=== PATIENT | male | born 1945 | race Caucasian/White ===

== ENCOUNTER 2017-06-21 15:21 | Emergency (ER) | payer MEDICARE ==
[2017-06-21 16:00] LABS: #Lymphocytes 0.8 thou/uL (1.20-3.40); #Monocytes 0.3 thou/uL (0.11-0.59); #Neutrophils 6.5 thou/uL (1.40-6.50); %Basophils 0.6 % (0.0-1.0); %Eosinophils 0.4 % (0.0-10.0); %Monocytes 3.8 % (0.0-10.0); Hematocrit 51.1 % (42.0-52.0); Mean Platelet Volume 7.3 fL (7.4-10.4); Red Blood Cell (RBC) Count 5.21 mill/uL (4.70-6.10); White Blood Cell (WBC) Count 7.7 thou/uL (4.8-10.8)
[2017-06-21 16:24] LABS: ALT (SGPT) 27 U/L (8-55); AST (SGOT) 23 U/L (5-34); Alkaline Phosphatase 57 U/L (40-150); Anion Gap 14 mmol/L (10-20); BUN (Urea Nitrogen) 18 mg/dL (8.4-25.7); Bilirubin, Total 0.8 mg/dL (0.2-1.2); CK (CPK) 105 U/L (30-200); Calc. Creatinine Clearance 0 mL/min (70-130); Calcium 9.7 mg/dL (7.8-10.44); Carbon Dioxide 28 mmol/L (23-31); Chloride 101 mmol/L (98-107); Estimated GFR-MDRD 72; Lipase 15 U/L (8-78); Protein, Total 7.4 g/dL (5.8-8.1)
[2017-06-21 16:27] LABS: Troponin I Less than 0.010 ng/mL (< 0.028)
--- NOTE | 2017-06-21 16:37 | RAD ---
PORTABLE AP CHEST: Date: 06-21-17 History: Chest pain, dizziness. 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 Cardiac silhouette and pulmonary vasculature are wi thin normal limits. The lungs are clear. Pleural and parenchymal changes of the left lung base have resolved and previously noted left subclavian central venous catheter is no longer visualized. 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 This is a stable finding compared to the prior examination in 2007. Vascular calcification seen in the thoraci c aorta. IMPRESSION: No acute cardiopulmonary process. POS: [facility]
--- NOTE | 2017-06-21 17:11 | CT ---
CT HEAD WITHOUT IV CONTRASTS: Date: 06-21-17 History: Dizziness, vomiting. Comparison: None available. FINDINGS: There is no evidence of a hemorrhage, acute infarction, mass effect, or midline shift. Ventricular s ystem is normal in size, shape, and position. There is mild cerebral and cerebellar volume loss, not unexpected for the patient's age. There is mucosal thickening seen in the visualized left maxillary antrum. Calvarial structures are i ntact. IMPRESSION: 1. No acute intracranial abnormality is demonstrated. 2. Mild cerebral and cerebellar volume loss. 3. Sinus disease involving the left maxillary antrum. POS: [facility]
== END 2017-06-21 17:51 | disposition home or self-care (01) ==
LOC: ERS 15:21
DX: R42 Dizziness and giddiness (principal); I10 Essential (primary) hypertension; Z79.899 Other long term (current) drug therapy
CPT/HCPCS: 36415; 70450; 71010; 80053; 82553; 83690; 84484; 85025; 93005

== ENCOUNTER 2018-04-18 11:05 | Outpatient (CLI) | payer MEDICARE | END 2018-04-18 11:06 | disposition home or self-care (01) | LOC: BICRAD 11:05 | PROVIDERS: ATTEND Family Medicine | DX: M54.16 Radiculopathy, lumbar region (principal); M54.5 Low back pain; M43.16 Spondylolisthesis, lumbar region | CPT/HCPCS: 72110 ==

== ENCOUNTER 2018-08-15 13:35 | Outpatient (CLI) | payer MEDICARE ==
[2018-08-15 14:27] LABS: Hemoglobin 14.8 g/dL (14.0-18.0); Mean Corpuscular HGB CONC 33.7 g/dL (32.0-36.0); Mean Corpuscular Hemoglobin 32.9 pg (27.0-31.0); Mean Corpuscular Volume 97.4 fL (78.0-98.0); Mean Platelet Volume 7.8 fL (7.4-10.4); Platelet Count 211 thou/uL (130-400); RBC Distribution Width 12.5 % (11.5-14.5); White Blood Cell (WBC) Count 5.6 thou/uL (4.8-10.8)
[2018-08-15 14:34] LABS: INR-International Normal Ratio 0.9; PTT 27.1 SEC (22.9-36.1); Prothrombin Time 12.5 SEC (12.0-14.7)
[2018-08-15 14:42] LABS: Anion Gap 12 mmol/L (10-20); BUN (Urea Nitrogen) 22 mg/dL (8.4-25.7); Calc. Creatinine Clearance 0 mL/min (70-130); Calcium 9.4 mg/dL (7.8-10.44); Carbon Dioxide 27 mmol/L (23-31); Chloride 104 mmol/L (98-107); Estimated GFR-MDRD 65; Glucose 130 mg/dL (83-110); Potassium 4.2 mmol/L (3.5-5.1); Sodium 139 mmol/L (136-145)
--- NOTE | 2018-08-15 17:21 | EKG ---
Test Reason : Blood Pressure : / mmHG Vent. Rate : 075 BPM Atrial Rate : 075 BPM P-R Int : 180 ms QRS Dur : 090 ms QT Int : 374 ms P-R-T Axes : 058 082 070 degrees QTc Int : 417 ms Normal sinus rhythm with sinus arrhythmia Normal ECG When compared with ECG of 21-JUN-2017 15:27, T wave inversion no longer evident in Anterior leads Confirmed by KAYA BONNER, SMatt ([id number]) on 08/15/2018 5:21:17 PM Referred By: ADWOA Confirmed By:DR. Mariposa KIRKPATRICK MD
== END 2018-08-15 13:36 | disposition home or self-care (01) ==
LOC: LABBT 13:35
PROVIDERS: ATTEND Surgery
DX: M48.061 Spinal stenosis, lumbar region without neurogenic claudication (principal); M54.16 Radiculopathy, lumbar region
CPT/HCPCS: 80048; 85027; 85610; 85730; 93005; 93010

== ENCOUNTER 2018-08-22 09:28 | Day surgery (SDC) | payer MEDICARE ==
[2018-08-15 13:36] VITALS: BMI 25.8
[2018-08-22] MEDS ORDERED: CEFAZOLIN 2 GM/50 ML BAG ONE (11:18)
[2018-08-22] MEDS ORDERED: Thrombin 5000 UNITS/5 ML VIAL ONE ×2 (13:12→14:52)
[2018-08-22] MEDS ORDERED: Sodium Chloride 0.9% 10 ML ONE ×2 (13:12→14:52)
[2018-08-22] MEDS ORDERED: Bacitracin Zinc Ointment 30 gm TUBE ONE (14:52)
[2018-08-22] MEDS ORDERED: Ketorolac Tromethamine 30 MG/ML VIAL ONE (15:53)
[2018-08-22] MEDS ORDERED: Esmolol 100 MG/10 ML VIAL ONE (15:53)
[2018-08-22] MEDS ORDERED: Ondansetron PF 4 MG/2 ML Vial ONE ×2 (15:53→17:34)
[2018-08-22] MEDS ORDERED: Lidocaine 1% PF 5 ML VIAL ONE (15:53)
[2018-08-22] MEDS ORDERED: Glycopyrrolate 0.2 MG/ML 5 ML SYRINGE ONE (15:53)
[2018-08-22] MEDS ORDERED: Metoclopramide HCl 10 MG/2 ML VIAL ONE (15:53)
[2018-08-22] MEDS ORDERED: PHENYLEPHRINE-NS 100 MCG/ML 10 ML SYRINGE ONE (15:53)
[2018-08-22] MEDS ORDERED: PROPOFOL 200 MG/20 ML VIAL ONE (15:53)
[2018-08-22] MEDS ORDERED: Fentanyl 100 MCG/2 ML VIAL ONE ×2 (16:51→19:30)
[2018-08-22] MEDS ORDERED: Promethazine HCl 25 MG/ML VIAL SLOW IVP PRN (18:28)
[2018-08-22] MEDS ORDERED: PACU-Morphine 4MG/ML VIAL SLOW IVP PRN (18:28)
[2018-08-22] MEDS ORDERED: Ondansetron HCl/PF 4 MG/2 ML Vial IVP PRN (18:28)
[2018-08-22] MEDS ORDERED: Promethazine HCl 25 MG/ML VIAL IM PRN ×2 (18:28→19:05)
[2018-08-22] MEDS ORDERED: Meperidine HCl/PF 25 MG/ML VIAL SLOW IVP PRN (18:28)
[2018-08-22] MEDS ORDERED: HYDROmorphone 2 MG/ML VIAL SLOW IVP PRN (18:28)
[2018-08-22] MEDS ORDERED: Morphine Sulfate 2 MG/ML SYRINGE SLOW IVP PRN (18:28)
[2018-08-22] MEDS ORDERED: Mag-Al 1200 mg/1200 mg/30 ML UDCUP PO PRN (19:05)
[2018-08-22] MEDS ORDERED: tiZANidine HCl 4 MG TAB PO PRN (19:05)
[2018-08-22] MEDS ORDERED: traMADol HCl 50 MG TAB PO PRN (19:05)
[2018-08-22] MEDS ORDERED: Acetaminophen/Codeine 30-300mg Tablet PO PRN (19:05)
[2018-08-22] MEDS ORDERED: Fleet Enema 133 ML BOT PR PRN (19:05)
[2018-08-22] MEDS ORDERED: Morphine 2 MG/ML SYRINGE SLOW IVP PRN (19:05)
[2018-08-22] MEDS ORDERED: Milk Of Magnesia 30 ML UDCUP PO PRN (19:05)
[2018-08-22] MEDS ORDERED: Acetaminophen 325 MG TAB PO PRN (19:05)
[2018-08-22] MEDS ORDERED: Bisacodyl 10 MG SUPP PR PRN (19:05)
[2018-08-22] MEDS ORDERED: CANAGLIFLOZIN PO SCH (21:00)
[2018-08-22] MEDS: Sodium Chloride 0.9% 1,000 ML IV SCH (22:37)
[2018-08-23] MEDS: Sodium Chloride 0.9% 1,000 ML IV SCH (00:09)
[2018-08-23] MEDS: CEFAZOLIN 2 GM/50 ML BAG IVPB SCH ×2 (00:09→08:16)
[2018-08-23] MEDS: HYDROcodone/Acetaminophen 7.5/325 mg Tablet PO PRN ×2 (00:13→08:14)
[2018-08-23 08:08] VITALS: TEMP 98.3
[2018-08-23] MEDS ORDERED: Prevnar 13-Val Conj/PF 0.5 ML SYRINGE IM ONE (09:00)
[2018-08-23] MEDS ORDERED: Lactinex Tablet PO SCH (09:00)
[2018-08-23] MEDS ORDERED: Multivits W-Minerals Liquid 15mL UDCUP PO SCH (09:00)
[2018-08-23] MEDS ORDERED: Ascorbic Acid 500 mg Chewable Tablet PO SCH (09:00)
[2018-08-23] MEDS ORDERED: Metamucil PACK PO SCH (09:00)
[2018-08-23] MEDS ORDERED: Lisinopril 10 MG TAB PO SCH (09:00)
[2018-08-23] MEDS ORDERED: GLUCOSAMINE PO SCH (09:00)
[2018-08-23] MEDS ORDERED: Folic Acid 1 MG TAB PO SCH (09:00)
[2018-08-23] MEDS ORDERED: CHROMIUM AMINO ACID CHELATE PO SCH (09:00)
--- NOTE | 2018-08-23 09:58 | PRG ---
DATE OF SERVICE: Mr. Porter is postoperative day 1 from L3 through L5 laminectomy. He has had resolution in his leg pain with good strength. He is tolerating orals, but he is not yet mobilized to the bathroom. He has voided on his own. As long as he is mobilizing, we will dismiss him. Job ID: [id number]
[2018-08-23 12:17] VITALS: BP 147/69
--- NOTE | 2018-08-23 15:17 | OP ---
DATE OF PROCEDURE: 08/22/2018 OPERATING ROOM: OR 11. SUPERVISOR TUMBLERS: Benny Youngblood PA-C PREPROCEDURE DIAGNOSIS: Lumbar stenosis with low back and leg pain. POSTPROCEDURE DIAGNOSIS: Lumbar stenosis with low back and leg pain. PROCEDURES PERFORMED: L3-L4 and L4-L5 laminectomies, partial facetectomies, and foraminotomies. DESCRIPTION OF PROCEDURE: After informed consent was obtained from the patient, the patient was brought to OR 11. Proper patient pause and identification were carried out. He was placed under excellent general endotracheal anesthesia and positioned prone on the OR table. All appropriate points were padded. We identified the L3, L4, and L5 dorsal spines. A linear kenisha was made over this region. This area was sterilely cleansed, prepared, and draped. Proper patient pause and identification were carried out. The wound was then opened with a combination of sharp, monopolar, and blunt dissection. The L3, L4, and L5 dorsal spines and lamina were exposed. Localization confirmed our area of interest. We then performed an L3, L4, and L5 laminectomies, partial fasciectomies, and foraminotomies with excellent decompression of the common dural tube in the L3, L4, and L5 nerve roots. Copious irrigation occurred throughout as did maximizing hemostasis. The wound was then closed in anatomic layers following sprinkling of vancomycin powder. There was no spinal fluid leak. The patient then emerged from anesthesia. Job ID: [id number]
== END 2018-08-23 12:18 | disposition home or self-care (01) ==
LOC: SDC 09:28 → SURG A 19:40 → SDC 08-23 12:18
PROVIDERS: ATTEND Surgery
PROC: 01NB0ZZ Release Lumbar Nerve, Open Approach (ICD-10-PCS; principal; 2018-08-22)
DX: M48.061 Spinal stenosis, lumbar region without neurogenic claudication (principal); Z79.899 Other long term (current) drug therapy
CPT/HCPCS: 76001; J0131; J1885; J2001; J2405; J2704; J2765; J3010; J3370; J3490

== ENCOUNTER 2019-12-25 09:01 | Outpatient (CLI) | payer MEDICARE ==
--- NOTE | 2019-12-25 10:25 | MRI ---
MRI OF THE LUMBAR SPINE WITHOUT CONTRAST: Date: 12/25/2019 COMPARISON: None. HISTORY: Left hip pain that radiates down the left foot after getting out of a car 1 month ago. COMPARISON: 05/08/2018. Prior lumbar surgery in 2012. TECHNIQUE: Multiplanar, multisequence MR images were obtained in the lumbar spine without contrast. FINDINGS: Generalized disc desiccation seen. The vertebral bodies and intervertebral discs demonstrate normal h eight and alignment without fracture or subluxation. The conus medullaris terminates normally at T12. There is a well-circumscribed focus of high T2 signal in the left kidney which likely represents a cy st. The patient has had laminectomies at L4 and L5. The other paraspinal soft tissues are unremarkabl e. T12-L1: Unremarkable. L1-2: Unremarkable. L2-3: A small, generalized concentric disc bulge is seen. Mild bilateral posterior facet arthrosis. Mild central canal stenosis. Mild to moderate bilateral neural foraminal stenosis. L3-4: A small, generalized concentric disc bulge is seen. Mild bilateral posterior facet arthrosis. No central canal stenosis. Mild to moderate bilateral neural foraminal stenosis. L4-5: A small, generalized concentric disc bulge is seen. There is a superimposed left lateral protr usion. Moderate bilateral posterior facet arthrosis. No central canal stenosis. Severe left neural fo raminal stenosis. Mild right neural foraminal stenosis. L5-S1: A small, generalized concentric disc bulge is associated with a superimposed central protrusi on. Mild bilateral posterior facet arthrosis. No central canal stenosis. Moderate bilateral neural fo raminal stenosis. IMPRESSION: Degenerative changes of the lumbar spine as above. There is a new superimposed protrusion at L4-5 cau sing severe left neural foraminal stenosis. POS: [facility]
== END 2019-12-25 09:02 | disposition home or self-care (01) ==
LOC: BICMRI 09:01
PROVIDERS: ATTEND Family Medicine
DX: M47.26 Other spondylosis with radiculopathy, lumbar region (principal); M47.817 Spondylosis without myelopathy or radiculopathy, lumbosacral region; M48.02 Spinal stenosis, cervical region; M51.16 Intervertebral disc disorders with radiculopathy, lumbar region
CPT/HCPCS: 72148

== ENCOUNTER 2020-02-05 06:16 | Outpatient (CLI) | payer MEDICARE, OTHER ==
[2020-02-05 11:00] LABS: Hemoglobin 16.4 g/dL (14.0-18.0); Mean Corpuscular HGB CONC 32.3 g/dL (32.0-36.0); Mean Corpuscular Hemoglobin 31.7 pg (27.0-31.0); Mean Platelet Volume 8.4 fL (7.4-10.4); Platelet Count 186 thou/uL (130-400); RBC Distribution Width 12.7 % (11.5-14.5); Red Blood Cell (RBC) Count 5.16 mill/uL (4.70-6.10); White Blood Cell (WBC) Count 7.4 thou/uL (4.8-10.8)
[2020-02-05 11:20] LABS: Anion Gap 11 mmol/L (10-20); BUN (Urea Nitrogen) 28 mg/dL (8.4-25.7); Calc. Creatinine Clearance 0 mL/min (70-130); Calcium 9.7 mg/dL (7.8-10.44); Carbon Dioxide 28 mmol/L (23-31); Chloride 105 mmol/L (98-107); Estimated GFR-MDRD 61; Glucose 147 mg/dL (83-110); INR-International Normal Ratio 0.9; PTT 27.1 SEC (22.9-36.1); Potassium 4.1 mmol/L (3.5-5.1); Prothrombin Time 11.7 sec (12.0-14.7); Sodium 140 mmol/L (136-145)
[2020-02-05 18:42] LABS: SARS-CoV-2 MS2 Positive; SARS-CoV-2 N Gene Negative; SARS-CoV-2 S Gene Negative; SARS-CoV-2 orf1ab Negative
--- NOTE | 2020-02-05 21:10 | EKG ---
Test Reason : Blood Pressure : / mmHG Vent. Rate : 059 BPM Atrial Rate : 059 BPM P-R Int : 194 ms QRS Dur : 094 ms QT Int : 386 ms P-R-T Axes : 069 085 090 degrees QTc Int : 382 ms Sinus bradycardia Otherwise normal ECG When compared with ECG of 15-AUG-2018 14:01, No significant change was found Confirmed by Sachin WATT ([id number]) on 02/05/2020 9:09:57 PM Referred By: ADWOA Confirmed By:Sachin WATT
== END 2020-02-05 06:17 | disposition home or self-care (01) ==
LOC: LABBT 06:16
PROVIDERS: ATTEND Surgery
DX: Z01.818 Encounter for other preprocedural examination (principal); Z11.59 Encounter for screening for other viral diseases; M51.16 Intervertebral disc disorders with radiculopathy, lumbar region
CPT/HCPCS: 80048; 85027; 85610; 85730; 93005; U0003; 87635; 93010

== ENCOUNTER 2020-02-08 06:04 | Day surgery (SDC) | payer MEDICARE ==
[2020-02-08] MEDS ORDERED: Fentanyl 100 MCG/2 ML VIAL ONE ×2 (06:21→10:21)
[2020-02-08] MEDS ORDERED: Famotidine/PF 20 mg/2ml Vial ONE (06:22)
[2020-02-08] MEDS ORDERED: Thrombin 5000 UNITS/5 ML VIAL ONE (06:34)
[2020-02-08] MEDS ORDERED: SUGAMMADEX SODIUM 200 MG/2 ML VIAL ONE (07:02)
[2020-02-08] MEDS ORDERED: Promethazine HCl 25 MG/ML VIAL SLOW IVP PRN (09:24)
[2020-02-08] MEDS ORDERED: Promethazine HCl 25 MG/ML VIAL IM PRN (09:24)
[2020-02-08] MEDS ORDERED: Ondansetron HCl/PF 4 MG/2 ML Vial IVP PRN (09:24)
[2020-02-08] MEDS ORDERED: tiZANidine HCl 4 MG TAB PO PRN (10:17)
[2020-02-08] MEDS ORDERED: Mag-Al 1200 mg/1200 mg/30 ML UDCUP PO PRN (10:17)
[2020-02-08] MEDS ORDERED: Acetaminophen 325 MG TAB PO PRN (10:17)
[2020-02-08] MEDS ORDERED: Fleet Enema 133 ML BOT PR PRN (10:17)
[2020-02-08] MEDS ORDERED: Bisacodyl 10 MG SUPP PR PRN (10:17)
[2020-02-08] MEDS ORDERED: HYDROcodone/Acetaminophen 7.5/325 mg Tablet PO PRN (10:17)
[2020-02-08] MEDS ORDERED: Ondansetron PF 4 MG/2 ML Vial IVP PRN (10:17)
[2020-02-08] MEDS ORDERED: Milk Of Magnesia 30 ML UDCUP PO PRN (10:17)
[2020-02-08] MEDS ORDERED: Acetaminophen/Codeine 30-300mg Tablet PO PRN (10:17)
[2020-02-08] MEDS ORDERED: Morphine 2 MG/ML SYRINGE SLOW IVP PRN (10:17)
[2020-02-08 11:58] VITALS: BMI 25.8
[2020-02-08] MEDS: traMADol HCl 50 MG TAB PO PRN ×2 (12:34→19:21)
[2020-02-08] MEDS: Sodium Chloride 0.9% 1,000 ML IV SCH (12:34)
--- NOTE | 2020-02-08 13:20 | OP ---
DATE OF PROCEDURE: 02/08/2020 LOCATION: OR 5. FOREIGN SERVICE TEACHER: Shantel Worley PA-C PREPROCEDURE DIAGNOSIS: Left far-lateral disk extrusion at L4-L5 with compression of the exiting left L4 nerve root. POSTPROCEDURE DIAGNOSIS: Left far-lateral disk extrusion at L4-L5 with compression of the exiting left L4 nerve root. PROCEDURES PERFORMED: 1. Left L4-L5 trans-facet diskectomy for decompression of the exiting left L4 nerve root and far-lateral and lateral diskectomy. 2. Use of operating microscope for microdissection. DESCRIPTION OF PROCEDURE: After informed consent was obtained from the patient, the patient was brought to the OR. Proper patient, pause, and identification were carried out. He was placed under excellent general endotracheal anesthesia and positioned prone on the OR table. All appropriate points were padded. We identified the prior L4-L5 wound and this area was sterilely cleansed, prepared, and draped. Proper patient, pause, and identification were carried out. The wound was then opened with combination of sharp, monopolar, and blunt dissection proceeded over the left L4-L5 facet complex and identified the prior L3 through L5 decompression laminectomy defect. Localization film confirmed area of interest. We then performed a left L4-L5 trans-facet diskectomy with removal of multiple lateral and far-lateral disk fragments and complete decompression of the exiting left L4 nerve root. Microscope was used for microdissection. Copious irrigation occurred throughout as did maximizing hemostasis. The wound was then closed in anatomic layers following sprinkling of vancomycin powder. The patient then emerged from anesthesia. Job ID: [id number]
[2020-02-08] MEDS ORDERED: Lidocaine 1% PF 5 ML VIAL ONE (13:55)
[2020-02-08] MEDS ORDERED: PROPOFOL 200 MG/20 ML VIAL ONE (13:55)
[2020-02-08] MEDS ORDERED: Metoclopramide HCl 10 MG/2 ML VIAL ONE (13:55)
[2020-02-08] MEDS ORDERED: Dexamethasone 20 MG/5 ML VIAL ONE (13:55)
[2020-02-08] MEDS ORDERED: EPHEDRINE 25 MG/5 ML SYRINGE ONE (13:55)
[2020-02-08] MEDS ORDERED: Ketorolac Tromethamine 30 MG/ML VIAL ONE (13:55)
[2020-02-08] MEDS ORDERED: Ondansetron PF 4 MG/2 ML Vial ONE (13:55)
[2020-02-08] MEDS ORDERED: PHENYLEPHRINE-NS 100 MCG/ML 10 ML SYRINGE ONE (13:55)
[2020-02-08] MEDS ORDERED: Rocuronium Bromide 10 MG/ML (10ML VIAL) ONE (13:55)
--- NOTE | 2020-02-08 14:09 | RAD ---
EXAM: XR Lumbar Spine 2 Or 3 View PROVIDED CLINICAL HISTORY: Surgery COMPARISON: None FINDINGS: Lateral views of the lumbar spine submitted. Instrumentation is noted at the dorsum of the lumbar spi ne. Vascular calcifications are seen. IMPRESSION: As above.
[2020-02-08] MEDS: CEFAZOLIN 2 GM in Premix Bag 1 BAG IVPB SCH ×2 (16:19→23:51)
[2020-02-09] MEDS: Sodium Chloride 0.9% 1,000 ML IV SCH (00:55)
[2020-02-09] MEDS: traMADol HCl 50 MG TAB PO PRN ×2 (01:43→08:50)
[2020-02-09 08:26] VITALS: BP 119/66; TEMP 98.3
[2020-02-09] MEDS ORDERED: Ascorbic Acid 500 mg Chewable Tablet PO SCH (09:00)
[2020-02-09] MEDS ORDERED: Lactinex Tablet PO SCH (09:00)
[2020-02-09] MEDS ORDERED: Pregabalin 75 MG CAP PO SCH (09:00)
[2020-02-09] MEDS ORDERED: Folic Acid 1 MG TAB PO SCH (09:00)
[2020-02-09] MEDS ORDERED: Empagliflozin 25 MG TAB PO SCH (09:00)
[2020-02-09] MEDS ORDERED: Multivits W-Minerals Liquid 15 ML LIQ PO SCH (09:00)
[2020-02-09] MEDS ORDERED: Metamucil PACK PO SCH (09:00)
[2020-02-09] MEDS ORDERED: Thyroid 30 MG TAB PO SCH (09:00)
[2020-02-09] MEDS ORDERED: Lisinopril 10 MG TAB PO SCH ×2 (09:00)
--- NOTE | 2020-02-09 18:40 | DIS ---
DATE OF ADMISSION: 02/08/2020 DATE OF DISCHARGE: 02/09/2020 Mr. Porter was admitted to [facility] on February 08, 2020 with discharge date of February 09, 2020. ADMITTING PROVIDER: Angel Moran MD ADMISSION DIAGNOSIS: Status post lumbar diskectomy. DISCHARGE DIAGNOSIS: Status post lumbar diskectomy. HOSPITAL COURSE: Mr. Porter's hospital course was uncomplicated. No consultations were ordered. His pain was well tolerated and controlled well with our usual oral and IV pain medication. He ambulated early and often, and eventually was discharged home in good condition with outpatient followup planned in 2 weeks. Job ID: [id number]
== END 2020-02-09 10:17 | disposition home or self-care (01) ==
LOC: SDC 06:04 → SURG B 10:25 → SDC 02-09 10:17
PROVIDERS: ATTEND Surgery
PROC: 0SB20ZZ Excision of Lumbar Vertebral Disc, Open Approach (ICD-10-PCS; principal; 2020-02-08)
DX: M51.16 Intervertebral disc disorders with radiculopathy, lumbar region (principal); Z79.899 Other long term (current) drug therapy; Z95.1 Presence of aortocoronary bypass graft
CPT/HCPCS: 72100; J0690; J1100; J1885; J2001; J2270; J2405; J2704; J2765; J3010; J3370; S0028

== ENCOUNTER 2021-02-23 15:32 | Outpatient (CLI) | payer MEDICARE | END 2021-02-23 15:33 | disposition home or self-care (01) | LOC: BICRAD 15:32 | PROVIDERS: ATTEND Family Medicine | DX: M54.5 Low back pain (principal); M47.816 Spondylosis without myelopathy or radiculopathy, lumbar region; Z98.890 Other specified postprocedural states | CPT/HCPCS: 72110 ==

== ENCOUNTER 2021-03-11 07:05 | Outpatient (CLI) | payer MEDICARE | END 2021-03-11 07:06 | disposition home or self-care (01) | LOC: BICMRI 07:05 | PROVIDERS: ATTEND Family Medicine | DX: M51.16 Intervertebral disc disorders with radiculopathy, lumbar region (principal); M43.16 Spondylolisthesis, lumbar region; Z98.890 Other specified postprocedural states | CPT/HCPCS: 72158; 82565 ==

== ENCOUNTER 2021-03-30 17:08 | Outpatient (CLI) | payer MEDICARE ==
[2021-03-30 18:21] LABS: Hemoglobin 14.3 g/dL (13.5-17.5); INR-International Normal Ratio 0.9; Mean Corpuscular HGB CONC 32.5 g/dL (32.0-36.0); Mean Corpuscular Hemoglobin 31.9 pg (27.0-33.0); Mean Corpuscular Volume 98.2 fl (81.2-95.1); Mean Platelet Volume 10.2 fl (7.4-10.4); PTT 24.6 sec (22.0-33.0); Platelet Count 185 10x3/uL (150-450); Prothrombin Time 10.2 sec (9.5-12.1); RBC Distribution Width 13.2 % (11.5-14.5); Red Blood Cell (RBC) Count 4.48 10x6/uL (4.32-5.72); White Blood Cell (WBC) Count 6.1 10x3/uL (3.5-10.5)
[2021-03-30 18:22] LABS: Anion Gap 12 mmol/L (10-20); BUN (Urea Nitrogen) 30 mg/dL (8.4-25.7); Calc. Creatinine Clearance 0 mL/min (70-130); Calcium 9.7 mg/dL (7.8-10.44); Carbon Dioxide 27 mmol/L (23-31); Chloride 105 mmol/L (98-107); Glucose 223 mg/dL (83-110); Potassium 4.3 mmol/L (3.5-5.1); Sodium 140 mmol/L (136-145)
== END 2021-03-30 17:09 | disposition home or self-care (01) ==
LOC: LABBT 17:08
PROVIDERS: ATTEND Surgery
DX: Z01.818 Encounter for other preprocedural examination (principal); M51.16 Intervertebral disc disorders with radiculopathy, lumbar region; Z20.822 Contact with and (suspected) exposure to COVID-19
CPT/HCPCS: 80048; 85027; 85610; 85730; 93005; 93010